=== PATIENT | female | born 1925 | race Caucasian/White ===

== ENCOUNTER 2017-03-24 14:37 | Emergency (ER) | payer OTHER, BC ==
[2017-03-24 15:00] VITALS: BMI 27.3
[2017-03-24] MEDS ORDERED: SODIUM CHLORIDE 500 ML IV STA (15:41)
--- NOTE | 2017-03-24 15:46 | PDOC ---
History of Present Illness - General Chief Complaint: Revisit, Lab Variance Stated Complaint: PCP SENT/HIGH CREATININE LEVEL Time Seen by Provider: 03/24/17 15:16 History Source: Patient, Family - History of Present Illness Associated Symptoms: denies: chest pain, cough, diaphoresis, fever/chills, headaches, malaise, nausea/vomiting, shortness of breath, weakness Past History - Past Medical History Allergies/Adverse Reactions: Allergies Allergy/AdvReac Type Severity Reaction Status Date / Time No Known Allergies Allergy Verified 03/24/17 15:00 Cancer: Yes (lt. breast, lung) Cardiac Disorders: Yes (a-fib) CVA: Yes GI Disorders: Yes (pancreatitis) HTN: Yes - Psycho/Social/Smoking Cessation Hx Suicidal Ideation: No Smoking History: Former smoker Have you smoked in the past 12 months: No If you are a former smoker, when did you quit?: 29yrs Information on smoking cessation initiated: No Hx Alcohol Use: No Drug/Substance Use Hx: No Substance Use Type: None Review of Systems - Review of Systems Constitutional: No: Chills, Fever Respiratory: No: Cough, Shortness of Breath Cardiac (ROS): No: Chest Pain, Lightheadedness, Palpitations ABD/GI: No: Constipated, Diarrhea, Nausea, Vomiting : No: Dysuria, Flank Pain, Hematuria *Physical Exam - Vital Signs Last Vital Signs Temp Pulse Resp BP Pulse Ox 97.6 F 61 16 128/58 97 03/24/17 14:51 03/24/17 14:51 03/24/17 14:51 03/24/17 14:51 03/24/17 14:51 - Physical Exam General Appearance: Yes: Appropriately Dressed. No: Apparent Distress HEENT: positive: Normal Voice Neck: positive: Supple Respiratory/Chest: positive: Lungs Clear, Normal Breath Sounds. negative: Respiratory Distress Cardiovascular: positive: Regular Rate, S1, S2 Gastrointestinal/Abdominal: positive: Soft. 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 Pt only c/o "feeling gassy", denies any significant abd pain, n/v, acute urinary changes, weakness, change in BM, CP, SOB, f/c See exam ARF on routine labs yesterday Asx from renal standpoint Stable and well jerson in ED -will rpt labs 03/24/17 15:46 03/24/17 15:47 03/24/17 16:37 Cr 1.0 here. Pt remains well jerson and stable. Will contact referring PMD (Dr Dial) to discuss dispo 03/24/17 16:53 03/24/17 16:59 Case d/w Dr dawson (covering for Dr dial), agrees that pt can be discharged to continue f/u with PMD. Family and pt ok w/ plan and feel safe going home *DC/Admit/Observation/Transfer Diagnosis at time of Disposition: Encounter for laboratory test - Discharge Dispostion Disposition: HOME Condition at time of disposition: Good - Referrals Referrals: Sheyla Dial [Primary Care Provider] - - Patient Instructions Additional Instructions: Your creatinine was 1.0 today. Please continue to follow up with your PMD
[2017-03-24 15:59] LABS: BASOPHIL 1.5 % (0-2.0); EOSINOPHIL 4.4 % (0-4.5); MCH 33.5 pg (25.7-33.7); MCHC 33.4 g/dl (32.0-36.0); MEAN CELL VOLUME 100.2 fl (80-96); MEAN PLT VOLUME 8.9 fl (7.5-11.1); NEUTROPHILS 61.6 % (42.8-82.8); PLATELET COUNT 205 K/MM3 (134-434); RDW 15.4 % (11.6-15.6); WHITE BLOOD COUNT 7.7 K/mm3 (4.0-10.0)
[2017-03-24 16:14] LABS: ALBUMIN 3.4 g/dl (3.4-5.0); ANION GAP 7 (8-16); BILIRUBIN,TOTAL 0.4 mg/dL (0.2-1.0); CALCIUM 8.4 mg/dL (8.5-10.1); CO2 34 mmol/L (21-32); GLUCOSE,RANDOM 127 mg/dL (74-106); SGPT/ALT 26 U/L (12-78); TOT PROT 6.8 g/dl (6.4-8.2)
[2017-03-24 16:15] LABS: ALK PHOS 64 U/L (45-117)
[2017-03-24 16:16] LABS: SGOT/AST 28 U/L (15-37)
--- NOTE | 2017-03-24 16:36 | PDOC ---
*Physical Exam - Vital Signs Last Vital Signs Temp Pulse Resp BP Pulse Ox 97.6 F 61 16 128/58 97 03/24/17 14:51 03/24/17 14:51 03/24/17 14:51 03/24/17 14:51 03/24/17 14:51 ED Treatment Course - LABORATORY CBC & Chemistry Diagram: 03/24/17 15:30 03/24/17 15:30 - ADDITIONAL ORDERS Additional order review: Laboratory Results 03/24/17 15:30 Sodium 142 Potassium 3.7 Chloride 101 Carbon Dioxide 34 H Anion Gap 7 L BUN 25 H Creatinine 1.0 Creat Clearance w eGFR 52.20 Random Glucose 127 H Calcium 8.4 L Total Bilirubin 0.4 AST 28 ALT 26 Alkaline Phosphatase 64 Total Protein 6.8 Albumin 3.4 03/24/17 15:30 RBC 3.88 MCV 100.2 H MCHC 33.4 RDW 15.4 MPV 8.9 Neutrophils % 61.6 Lymphocytes % 17.6 Monocytes % 14.9 H Eosinophils % 4.4 Basophils % 1.5 Medical Decision Making - Medical Decision Making 03/24/17 18:01 Agree with PA's evaluation, assessment, and plan. 89F with lung ca s/p chemo, CML on gleevac, HTN, afib on eliquis, chronic pancreatitis, was recently on potassium supplement for hypokalemia, called in for elevated Cr on outpt labs. Repeat Cr today normal. No indication for further intervention at this time. - Discussed with covering PMD results - Agree with plan to discharge home and f/u with PMD in timely manner *DC/Admit/Observation/Transfer Diagnosis at time of Disposition: Encounter for laboratory test - Discharge Dispostion Disposition: HOME Condition at time of disposition: Good - Referrals Referrals: Sheyla Nieto [Primary Care Provider] - - Patient Instructions Additional Instructions: Your creatinine was 1.0 today. Please continue to follow up with your PMD - Attestations Physician Attestion: 03/24/17 18:02 I, Dr. Deonte Nj MD, attest that this document has been prepared under my direction and personally reviewed by me in its entirety. I further attest, that it accurately reflects all work, treatment, procedures and medical decision -making performed by me.
[2017-03-24] MEDS ORDERED: MAG HYDROX/AL HYDROX/SIMETH 30 ML UNIT-DOSE CUP PO ONE (16:37)
[2017-03-24 17:03] LABS: PLATELET ESTIMATE ADEQUATE (NORMAL)
[2017-03-24] MEDS ORDERED: MAG HYDROX/AL HYDROX/SIMETH 30 ML UNIT-DOSE CUP ONE (17:42)
[2017-03-24 17:50] VITALS: BP 139/78; PULSE 78; TEMP 98
--- NOTE | 2017-03-28 14:48 | EKG ---
Test Reason : Blood Pressure : / mmHG Vent. Rate : 059 BPM Atrial Rate : 059 BPM P-R Int : 150 ms QRS Dur : 086 ms QT Int : 448 ms P-R-T Axes : 041 -03 047 degrees QTc Int : 443 ms SINUS BRADYCARDIA POSSIBLE LEFT ATRIAL ENLARGEMENT BORDERLINE ECG NO PREVIOUS ECGS AVAILABLE Confirmed by LISSETTE ORTEGA, KETAN ([id number]) on 03/28/2017 2:48:02 PM Referred By: Confirmed By:KETAN MCLAUGHLIN MD
== END 2017-03-24 17:48 | disposition home or self-care (01) ==
LOC: JER 14:37
PROC: 3E0337Z Introduction of Electrolytic and Water Balance Substance into Peripheral Vein, Percutaneous Approach (ICD-10-PCS; principal; 2017-03-24)
DX: Z01.89 Encounter for other specified special examinations (principal); C34.90 Malignant neoplasm of unspecified part of unspecified bronchus or lung; Z92.21 Personal history of antineoplastic chemotherapy; C92.10 Chronic myeloid leukemia, BCR/ABL-positive, not having achieved remission; I10 Essential (primary) hypertension; I48.91 Unspecified atrial fibrillation; Z79.01 Long term (current) use of anticoagulants; K86.1 Other chronic pancreatitis
CPT/HCPCS: 36415; 80053; 83690; 85025; 93005; 93010; 99282-25

== ENCOUNTER 2017-05-31 11:23 | Emergency (ER) | payer OTHER, BC ==
[2017-05-31 11:35] VITALS: TEMP 97.9; BMI 27.3
--- NOTE | 2017-05-31 11:48 | PDOC ---
History of Present Illness - General History Source: Patient Exam Limitations: No Limitations - History of Present Illness Initial Comments: 05/31/17 11:48 The patient is a 89 year old female, BIBA from [place] with a significant past medical history of lung ca s/p chemo, CML on gleevec, chronic pancreatitis, HTN , CVA, and a-fib, who presents to the emergency department with slurred speech. [place] staff the patients last known well was last night, and notes upon the patient waking at this morning had slurred speech. Patient has no new focal weakness and denies any complaints of pain upon ED arrival. She denies recent fevers, chills, headache or dizziness. She denies recent nausea, vomit, diarrhea or constipation. She denies recent dysuria, frequency, urgency or hematuria. She denies recent chest pain or shortness of breath. Allergies: NKA Past surgical history: See HPI Social history: Nonsmoker. Denies EtOH use and recreational drug use. <Leon Santos - Last Filed: 05/31/17 11:48> - General History Source: Patient Exam Limitations: No Limitations <Alexus Barahona - Last Filed: 05/31/17 17:06> - General Stated Complaint: LETHARGIC Time Seen by Provider: 05/31/17 11:31 Past History <Leon Santos - Last Filed: 05/31/17 11:48> - Past Medical History Cancer: Yes (lt. breast, lung) Cardiac Disorders: Yes (a-fib) CVA: Yes GI Disorders: Yes (pancreatitis) HTN: Yes - Suicide/Smoking/Psychosocial Hx Smoking History: Former smoker Have you smoked in the past 12 months: No If you are a former smoker, when did you quit?: 29yrs Information on smoking cessation initiated: No Hx Alcohol Use: No Drug/Substance Use Hx: No Substance Use Type: None <Alexus Barahona - Last Filed: 05/31/17 17:06> - Past Medical History Allergies/Adverse Reactions: Allergies Allergy/AdvReac Type Severity Reaction Status Date / Time No Known Allergies Allergy Verified 03/24/17 15:00 Review of Systems - Review of Systems Able to Perform ROS?: Yes Comments:: 05/31/17 11:48 GENERAL/CONSTITUTIONAL: No fever or chills. No weakness. HEAD, EYES, EARS, NOSE AND THROAT: No change in vision. No ear pain or discharge. No sore throat. CARDIOVASCULAR: No chest pain or shortness of breath. RESPIRATORY: No cough, wheezing, or hemoptysis. GASTROINTESTINAL: No nausea, vomiting, diarrhea or constipation. GENITOURINARY: No dysuria, frequency, or change in urination. MUSCULOSKELETAL: No joint or muscle swelling or pain. No neck or back pain. SKIN: No rash NEUROLOGIC: No headache, vertigo, loss of consciousness, or change in strength/ sensation. ENDOCRINE: No increased thirst. No abnormal weight change. HEMATOLOGIC/LYMPHATIC: No anemia, easy bleeding, or history of blood clots. ALLERGIC/IMMUNOLOGIC: No hives or skin allergy. <Leon Santos - Last Filed: 05/31/17 11:48> *Physical Exam - Vital Signs Last Vital Signs Temp Pulse Resp BP Pulse Ox 97.9 F 60 20 128/52 93 L 05/31/17 11:31 05/31/17 11:31 05/31/17 11:31 05/31/17 11:31 05/31/17 11:31 - Physical Exam Comments: 05/31/17 11:49 GENERAL: Awake, alert, and fully oriented, in no acute distress HEAD: No signs of trauma EYES: PERRLA, EOMI, sclera anicteric, conjunctiva clear ENT: +MIld left nasolabial fold flattening. Speech mild slurring.Auricles normal inspection, hearing grossly normal, nares patent, Moist mucosa NECK: Normal ROM, supple, JVD, or masses LUNGS: Faint wheeze left lung base. No crackles HEART: Regular rate and rhythm, normal S1 and S2, no murmurs, rubs or gallops ABDOMEN: Soft, nontender, normoactive bowel sounds. No guarding, no rebound. No masses EXTREMITIES: Normal range of motion, no edema. No clubbing or cyanosis. No cords, erythema, or tenderness. 2+DP/PT pulses. NEUROLOGICAL: Moves all extremities equally. LUE 4+/5 instrength all other extremities 5/5. Cranial nerves intact besides changes noted above. A&Ox3 SKIN: Warm, Dry, normal turgor, no rashes or lesions noted. <Leon Santos - Last Filed: 05/31/17 11:48> - Vital Signs Last Vital Signs Temp Pulse Resp BP Pulse Ox 97.9 F 60 20 128/52 93 L 05/31/17 11:31 05/31/17 11:31 05/31/17 11:31 05/31/17 11:31 05/31/17 11:31 <LucreciacheriAlexus - Last Filed: 05/31/17 17:06> Heart Score/ECG Review #1 General ECG Interpretation: Sinus Rhythm (58), Normal Rate (sinus bradycardia), Normal Intervals, No acute ischemic changes <Alexus Barahona - Last Filed: 05/31/17 17:06> ED Treatment Course - LABORATORY CBC & Chemistry Diagram: 05/31/17 13:30 05/31/17 13:30 <Alexus Barahona - Last Filed: 05/31/17 17:06> Medical Decision Making - Medical Decision Making 05/31/17 11:44 89 yo f with h/o lung cancer ,afib, HTN, CML and prior cva here wtih c/o slurred speech. pt was sent by nursing facility due to concern for ams , slurring of speech on awakeningher at 8:30 am. pt no complaints of bob no n/v no cp no sob. differential: med side effect. hypoglycemia. cancer met, electrolyte abnormality , infection such as pna or uti. cva, bleed. plan labs ekg ct head. cxr neb. reassess. 05/31/17 13:03 pt daughter at the bedside. believes pt to be at her recent baseline following her most recent stroke. believes she has been declinig since re initiation of her chemo for lung ca. had thoracentesis 4 days ago. no f/c no c/o chest pain. not eating and drinking much. feels speech is at her baseline. oncologist and answering service telephone operator. dr garcia [phone], vincenzo burgess oncologist [phone]. at [place]. 05/31/17 13:08 05/31/17 15:23 pt answering service telephone operator paged. awaiting call back. paged dr. Vincenzo Hernandez . 05/31/17 15:29 d/w dr. hernandez , will see pt as outpt. discussed with him for workup. and outp followup. labs unremarkab.e mild hypokalemia. cxr with effusion. residual following thoracentesis. arthur await ua and call from answering service telephone operator dr. Garcia, regarding recent addition of terceva. called [facility] to update regarding plan. 05/31/17 17:04 cxr read by radiologist possible effusion and or atelectasis or pneumonia. d/w pt answering service telephone operator. states pt has had radiation, has chronic scarring and marking in left mid lower lung. no fever, no wbc. will dc back to [facility]. instructed to stop her terceva. per dr. jackson. d/w pt daughter. will dc <Alexus Barahona - Last Filed: 05/31/17 17:06> *DC/Admit/Observation/Transfer - Attestations Scribe Attestion: 05/31/17 11:49 Documentation prepared by Leon Santos, acting as medical assistant per diem for Alexus Barahona MD. <Leon Santos - Last Filed: 05/31/17 11:48> - Discharge Dispostion Admit: No <Alexus Barahona - Last Filed: 05/31/17 17:06> Diagnosis at time of Disposition: Alteration in activity - Discharge Dispostion Disposition: HOME Condition at time of disposition: Improved - Patient Instructions Printed Discharge Instructions: Dehydration, Lung Cancer Additional Instructions: you should follow up with dr Law , you answering service telephone operator to discuss your current chemo regimen. you should also follow up with your oncologist. return for any confusion, worsening symptoms or any concerns. If you are not tolerating the Terceva, you can stop taking it for now. per your answering service telephone operator. return for any problems or concerns.
[2017-05-31] MEDS ORDERED: ALBUTEROL SO4 2.5/IPRATROPIUM 0.5 INH SOL 3 ML VIAL.NEB. NEB ONE ×2 (11:50→12:29)
[2017-05-31] MEDS ORDERED: SODIUM CHLORIDE 0.9% 1000 ML INFUS.BAG IV ONE (13:01)
[2017-05-31 13:45] LABS: MCH 32.9 pg (25.7-33.7); MCHC 32.6 g/dl (32.0-36.0); MEAN CELL VOLUME 100.9 fl (80-96); MEAN PLT VOLUME 8.5 fl (7.5-11.1); PLATELET COUNT 295 K/MM3 (134-434); RDW 15.4 % (11.6-15.6); WHITE BLOOD COUNT 8.3 K/mm3 (4.0-10.0)
[2017-05-31 14:08] LABS: INR 1.58 (0.82-1.09); PROTHROMBIN TIME (PATIENT) 17.9 SEC (9.98-11.88)
[2017-05-31 14:10] LABS: ACTIVATED PTT 31.6 SECONDS (26.9-34.4)
[2017-05-31 14:21] LABS: ALBUMIN 2.7 g/dl (3.4-5.0); ANION GAP 9 (8-16); BILIRUBIN,TOTAL 0.8 mg/dL (0.2-1.0); CALCIUM 8.5 mg/dL (8.5-10.1); CO2 32 mmol/L (21-32); CREATININE 0.8 mg/dL (0.55-1.02); GLUCOSE,RANDOM 104 mg/dL (74-106); SGOT/AST 18 U/L (15-37); SGPT/ALT 18 U/L (12-78); TOT PROT 5.9 g/dl (6.4-8.2)
[2017-05-31 14:24] LABS: ALK PHOS 58 U/L (45-117)
[2017-05-31 14:31] LABS: METAMYELOCYTE 2 % (0-2); MYELOCYTE 4 % (0-2); OVALOCYTE 1+; PLATELET ESTIMATE ADEQUATE (NORMAL); TOTAL CELLS COUNTED 100
[2017-05-31 14:32] LABS: MACROCYTOSIS FEW
[2017-05-31] MEDS ORDERED: POTASSIUM CHLORIDE TABS 20 MEQ TABLET.ER (FP) PO ONE ×2 (15:22→15:27)
[2017-05-31 16:13] VITALS: BP 132/60; PULSE 59
[2017-05-31 16:20] LABS: URINE APPEARANCE CLEAR; URINE BILIRUBIN NEGATIVE (NEGATIVE); URINE BLOOD 1+ (NEGATIVE); URINE COLOR YELLOW; URINE GLUCOSE (UA) NEGATIVE (NEGATIVE); URINE KETONE NEGATIVE (NEGATIVE); URINE NITRITE NEGATIVE (NEGATIVE); URINE PROTEIN NEGATIVE (NEGATIVE); URINE UROBILINOGEN NEGATIVE mg/dL (0.2-1.0)
[2017-05-31 17:20] LABS: URINE MUCUS RARE; URINE RBC 6 /hpf (0-3); URINE WBC 1 /hpf (3-5)
[2017-05-31 17:46] LABS: URINE LEUK ESTERASE Negative (NEGATIVE)
--- NOTE | 2017-06-01 09:14 | EKG ---
Test Reason : Blood Pressure : / mmHG Vent. Rate : 058 BPM Atrial Rate : 058 BPM P-R Int : 160 ms QRS Dur : 088 ms QT Int : 442 ms P-R-T Axes : 007 -03 020 degrees QTc Int : 433 ms SINUS BRADYCARDIA OTHERWISE NORMAL ECG WHEN COMPARED WITH ECG OF 24-MAR-2017 15:33, NONSPECIFIC T WAVE ABNORMALITY NOW EVIDENT IN INFERIOR LEADS NONSPECIFIC T WAVE ABNORMALITY NOW EVIDENT IN ANTERIOR LEADS Confirmed by JOSÉ MIGUEL CALVERT MD ([id number]) on 06/01/2017 9:14:26 AM Referred By: Confirmed By:JOSÉ MIGUEL CALVERT MD
== END 2017-05-31 17:36 | disposition home or self-care (01) ==
LOC: JER 11:23
PROC: 3E0F7GC Introduction of Other Therapeutic Substance into Respiratory Tract, Via Natural or Artificial Opening (ICD-10-PCS; principal; 2017-05-31)
PROC: 3E0337Z Introduction of Electrolytic and Water Balance Substance into Peripheral Vein, Percutaneous Approach (ICD-10-PCS; 2017-05-31)
DX: R47.81 Slurred speech (principal); R53.83 Other fatigue; C34.90 Malignant neoplasm of unspecified part of unspecified bronchus or lung; Z92.21 Personal history of antineoplastic chemotherapy; Z85.3 Personal history of malignant neoplasm of breast; I48.91 Unspecified atrial fibrillation; C92.10 Chronic myeloid leukemia, BCR/ABL-positive, not having achieved remission; K86.1 Other chronic pancreatitis; I10 Essential (primary) hypertension; Z86.73 Personal history of transient ischemic attack (TIA), and cerebral infarction without residual deficits; Z87.891 Personal history of nicotine dependence
CPT/HCPCS: 36415; 70450-TC; 71010-TC; 80053; 81003; 81015; 83690; 83880; 85025; 85610; 85730; 87086; 93005; 93010; 99283-25